=== PATIENT | female | born 1995 | race Caucasian/White ===

== ENCOUNTER → 2019-01-23 | Outpatient (CLI) | payer BC, SELFPAY ==
[2019-01-29 16:36] LABS: HPV Reflexed? NOT INDICATED
== END | disposition home or self-care (01) ==
PROVIDERS: Family Provider Pediatrics; PCP Pediatrics; Referring Provider Obstetrics & Gynecology; Visit Provider Obstetrics & Gynecology
DX: Z12.4 Encounter for screening for malignant neoplasm of cervix (principal)
CPT/HCPCS: 87624; 88175; G0145

== ENCOUNTER → 2020-04-29 15:55 | Outpatient (CLI) | payer BC, SELFPAY ==
[2016-09-01 05:51] VITALS: BMI 23.9
[2020-05-01 11:43] LABS: Cancer Antigen 125 8.9 U/mL (0.0-38.1)
== END ==
LOC: WOBLAB 16:00
PROVIDERS: PCP Pediatrics; Visit Provider Obstetrics & Gynecology
DX: N80.9 Endometriosis, unspecified (principal); R10.30 Lower abdominal pain, unspecified
CPT/HCPCS: 36415; 86304